=== PATIENT | male | born 1985 | race Caucasian/White ===

== ENCOUNTER 2018-11-15 08:38 | Emergency (ER) | payer OTHER ==
[~2018-11-15] VITALS: Ht 175.3 cm; Wt 102.1 kg
[~2018-11-15 08:38] MED LIST: IBUP-1027 PO; unknown antibiotic
[2018-11-15] MEDS ORDERED: IV NORMAL SALINE 1000ML BAG 1,000 ML IV SCH (08:51)
[2018-11-15] MEDS ORDERED: FAMOTIDINE 20 MG/2 ML VIAL IVP ONE (09:00)
[2018-11-15] MEDS ORDERED: ONDANSETRON PF 4 MG/2 ML VIAL. IV ONE (09:00)
[2018-11-15 09:08] LABS: BILIRUBIN,URINE MODERATE (NEG); CLARITY,URINE CLOUDY; COLOR,URINE AMBER; NITRITE,URINE NEGATIVE (NEG); PROTEIN,URINE 30 mg/dL (NEG-TRACE); UROBILINOGEN,URINE 0.2 mg/dL (0.2 mg/dL)
--- NOTE | 2018-11-15 09:09 | PHYS DOC ---
Past Medical History Past Medical History: GERD Past Surgical History: Other Additional Past Surgical Histo: INGUINAL HERNIA Alcohol Use: Occasionally Drug Use: None Adult General Chief Complaint Chief Complaint: NAUSEA/VOMITING/DIARRHA HPI HPI Patient is a 33 year old male who presents with Ate BBQ yesterday and then began vomiting. Patient states he began vomiting at noon yesterday. States Meth use 2 days ago but no other drugs. Denies abdominal pain, fever, diarrhea. States he also has a abscess on his left thumb that he is afraid is comig back. Patient states he has been off the antibiotics for this for a month. Review of Systems Review of Systems Constitutional: Denies fever or chills [] GI: Denies abdominal pain, +nausea, +vomiting, denies bloody stools or diarrhea [] : Denies dysuria or hematuria [] Musculoskeletal: Denies back pain or joint pain [] Integument: Left thumb wound. Denies rash or skin lesions [] Neurologic: Denies headache, focal weakness or sensory changes [] All other systems were reviewed and found to be within normal limits, except as documented in this note. Current Medications Current Medications Current Medications Medications (Trade) Dose Ordered Sig/Feliberto Start Time Stop Time Status Last Admin Dose Admin Famotidine (Pepcid Vial) 20 mg 1X ONCE 11/15/18 09:00 11/15/18 09:01 DC 11/15/18 09:26 20 MG Ondansetron HCl (Zofran) 4 mg 1X ONCE 11/15/18 09:00 11/15/18 09:01 DC 11/15/18 09:26 4 MG Sodium Chloride 1,000 ml @ 1,000 mls/hr 1X ONCE 11/15/18 10:30 11/15/18 11:29 DC 11/15/18 10:31 1,000 MLS/HR Allergies Allergies Allergies Coded Allergies Type Severity Reaction Last Updated Verified morphine Adverse Reaction Intermediate NAUSEA 10/09/18 Yes Physical Exam Physical Exam Constitutional: Well developed, well nourished, no acute distress, non-toxic appearance. [] Eyes: PERRLA, EOMI, conjunctiva normal, no discharge. [] Cardiovascular:Heart rate regular rhythm, no murmur [] Lungs & Thorax: Bilateral breath sounds clear to auscultation [] Abdomen: Bowel sounds normal, soft, no tenderness, no masses, no pulsatile masses. [] Skin: Left thumb wound. Warm, dry, no erythema, no rash. [] Back: No tenderness, no CVA tenderness. [] Extremities: No tenderness, no cyanosis, no clubbing, ROM intact, no edema. [] Neurologic: Alert and oriented X 3, normal motor function, normal sensory function, no focal deficits noted. [] Psychologic: Affect normal, judgement normal, mood normal. [] Current Patient Data Vital Signs Vital Signs Date Time Temp Pulse Resp B/P (MAP) Pulse Ox O2 Delivery O2 Flow Rate FiO2 11/15/18 08:58 97.4 94 16 172/117 (135) 98 Room Air 97.4 Lab Values Laboratory Tests Test 11/15/18 08:44 11/15/18 09:15 Urine Color Sherry Urine Clarity Cloudy Urine pH 5.0 Urine Specific Hensley >=1.030 Urine Protein 30 mg/dL (NEG-TRACE) Urine Glucose (UA) Negative mg/dL (NEG) Urine Ketones (Stick) Negative mg/dL (NEG) Urine Blood Negative (NEG) Urine Nitrite Negative (NEG) Urine Bilirubin Moderate (NEG) Urine Urobilinogen Dipstick 0.2 mg/dL (0.2 mg/dL) Urine Leukocyte Esterase Negative (NEG) Urine RBC 0 /HPF (0-2) Urine WBC 0 /HPF (0-4) Urine Squamous Epithelial Cells Many /LPF Urine Bacteria 0 /HPF (0-FEW) Urine Hyaline Casts Many /HPF Urine Opiates Screen Neg (NEG) Urine Methadone Screen Neg (NEG) Urine Barbiturates Neg (NEG) Urine Phencyclidine Screen Neg (NEG) Urine Amphetamine/Methamphetamine Pos (NEG) Urine Benzodiazepines Screen Neg (NEG) Urine Cocaine Screen Neg (NEG) Urine Cannabinoids Screen Neg (NEG) Urine Ethyl Alcohol Neg (NEG) White Blood Count 13.4 x10^3/uL (4.0-11.0) H Red Blood Count 6.28 x10^6/uL (4.30-5.70) H Hemoglobin 19.5 g/dL (13.0-17.5) H Hematocrit 54.6 % (39.0-53.0) H Mean Corpuscular Volume 87 fL (79-100) Mean Corpuscular Hemoglobin 31 pg (25-35) Mean Corpuscular Hemoglobin Concent 36 g/dL (31-37) Red Cell Distribution Width 13.3 % (11.5-14.5) Platelet Count 414 x10^3/uL (140-400) H Neutrophils (%) (Auto) 83 % (31-73) H Lymphocytes (%) (Auto) 10 % (24-48) L Monocytes (%) (Auto) 7 % (0-9) Eosinophils (%) (Auto) 0 % (0-3) Basophils (%) (Auto) 0 % (0-3) Neutrophils # (Auto) 11.1 x10^3/uL (1.8-7.7) H Lymphocytes # (Auto) 1.3 x10^3/uL (1.0-4.8) Monocytes # (Auto) 0.9 x10^3/uL (0.0-1.1) Eosinophils # (Auto) 0.0 x10^3/uL (0.0-0.7) Basophils # (Auto) 0.0 x10^3/uL (0.0-0.2) Sodium Level 133 mmol/L (136-145) L Potassium Level 3.4 mmol/L (3.5-5.1) L Chloride Level 93 mmol/L (98-107) L Carbon Dioxide Level 24 mmol/L (21-32) Anion Gap 16 (6-14) H Blood Urea Nitrogen 33 mg/dL (8-26) H Creatinine 1.9 mg/dL (0.7-1.3) H Estimated GFR (Cockcroft-Gault) 41.0 BUN/Creatinine Ratio 17 (6-20) Glucose Level 147 mg/dL (70-99) H Lactic Acid Level 1.5 mmol/L (0.4-2.0) Calcium Level 10.5 mg/dL (8.5-10.1) H Total Bilirubin 2.0 mg/dL (0.2-1.0) H Aspartate Amino Transferase (AST) 37 U/L (15-37) Alanine Aminotransferase (ALT) 51 U/L (16-63) Alkaline Phosphatase 93 U/L (46-116) Creatine Kinase 262 U/L (39-308) Troponin I Quantitative < 0.017 ng/mL (0.000-0.055) Total Protein 10.0 g/dL (6.4-8.2) H Albumin 4.9 g/dL (3.4-5.0) Albumin/Globulin Ratio 1.0 (1.0-1.7) Lipase 141 U/L (73-393) Ethyl Alcohol Level < 10 mg/dL (0-10) Laboratory Tests 11/15/18 09:15 Laboratory Tests 11/15/18 09:15 EKG EKG Sinus Rhythm and no STEMI[] Interpretation Time: [address] Rosas Radiology/Procedures Radiology/Procedures [] Course & Med Decision Making Course & Med Decision Making Patient is a 33 year old male who presents with Ate BBQ yesterday and then began vomiting. Patient states he began vomiting at noon yesterday. States Meth use 2 days ago but no other drugs. Denies abdominal pain, fever, diarrhea. States he also has a abscess on his left thumb that he is afraid is comig back. Patient states he has been off the antibiotics for this for a month. Abdomen soft and nontender. Patient was admitted as inpatient October 09 for acute kidney injury, gastritis and a left thumb abscess. The left thumb abscess was opened and drained and patient was placed on doxycycline. Patient is concerned that his abscess on his left thumb is coming back. The wound looks to be scabbed over and non draining. There is no swelling or tenderness seen. Patient states he has a appointment with nephrology appointment on November 29. PERRLA. Denies s oa, chest pain, headache, abdominal pain, diarrhea, constipation, back pain, dizziness, palpitations, numbness or tingling, weaknesses. Ambulatory with a steady gait. Skin pink warm and dry. Lungs are clear to auscultation in all lobes. No extremity edema. I have consulted with Dr Rosas on the care plan for this patient and he is aware of the abnormal lab values. Patient states he is needing to leave because of his grand mothers . Patient is offered admission. Patient states he needs to leave and that he is feeling much better. Patient states that he will come back if needed. Patient to continue to take Pantoprazole as his doctor ordered and to stay hydrated. I will give him a prescription for zofran. Patient is educated to not do Methamphetamines or any other drugs. Patient is stable and understands the education. Dragon Disclaimer Dragon Disclaimer This electronic medical record was generated, in whole or in part, using a voice recognition dictation system. Departure Departure Impression: Primary Impression: Nausea & vomiting Disposition: 01 HOME, SELF-CARE Condition: STABLE Referrals: NO PCP (PCP) Patient Instructions: Diet for Gastroesophageal Reflux Disease, Adult, Nausea and Vomiting Additional Instructions: Follow up with primary care physician and keep appointment with nephrology. Take medications as prescribed. Scripts Ondansetron (ONDANSETRON ODT) 4 Mg Tab.rapdis 1 TAB PO PRN Q6-8HRS, #16 TAB Prov: KRIS CAR APRN 11/15/18 Problem Qualifiers Primary Impression: Nausea & vomiting Vomiting type: unspecified Vomiting Intractability: non-intractable Qualified Codes: R11.2 - Nausea with vomiting, unspecified KRIS CAR APRN Nov 15, 2018 09:09
[2018-11-15 09:14] LABS: BARBITURATES NEG (NEG); BENZODIAZEPINES NEG (NEG); CANNABINOIDS NEG (NEG); COCAINE NEG (NEG); METHADONE NEG (NEG); OPIATES NEG (NEG); PHENCYCLIDINE NEG (NEG)
[2018-11-15 09:15] LABS: AMPHETAMINE/METHAMPHETAMINE POS (NEG)
[2018-11-15 09:24] LABS: BACTERIA,URINE 0 /HPF (0-FEW); HYALINE CASTS, URINE MANY /HPF; RBC,URINE 0 /HPF (0-2); SQUAMOUS EPITHELIAL CELL,UR MANY /LPF; WBC,URINE 0 /HPF (0-4)
[2018-11-15 09:30] LABS: BASO % 0 % (0-3); EOS % 0 % (0-3); HEMATOCRIT 54.6 % (39.0-53.0); HEMOGLOBIN 19.5 g/dL (13.0-17.5); LYMPH # 1.3 x10^3/uL (1.0-4.8); LYMPH % 10 % (24-48); MEAN CORPUSCULAR HEMOGLOBIN 31 pg (25-35); MEAN CORPUSCULAR HGB CONC 36 g/dL (31-37); MEAN CORPUSCULAR VOLUME 87 fL (79-100); MONO # 0.9 x10^3/uL (0.0-1.1); MONO % 7 % (0-9); NEUT # 11.1 x10^3/uL (1.8-7.7); NEUT % 83 % (31-73); PLATELET COUNT 414 x10^3/uL (140-400); RED BLOOD COUNT 6.28 x10^6/uL (4.30-5.70); RED CELL DISTRIBUTION WIDTH 13.3 % (11.5-14.5); WHITE BLOOD COUNT 13.4 x10^3/uL (4.0-11.0)
[2018-11-15 09:47] LABS: CALCIUM 10.5 mg/dL (8.5-10.1); CREATININE 1.9 mg/dL (0.7-1.3); POTASSIUM 3.4 mmol/L (3.5-5.1)
[2018-11-15 09:54] LABS: ALBUMIN 4.9 g/dL (3.4-5.0)
[2018-11-15] MEDS ORDERED: IV NORMAL SALINE 1000ML BAG 1,000 ML IV ONE (10:30)
--- NOTE | 2018-11-15 11:21 | EKG ---
[facility] [address] [place] [address] Test Date: 2018-11-15 Test Time: 09:02:59 Pat Name: MARIEL FREEMAN Department: Room: Gender: M [employer] Operator: : 1985 Requested By: KRIS CAR Order Number: [id number] Reading MD: Measurements Intervals [place] Rate: 91 P: 59 NC: 124 QRS: -36 QRSD: 96 T: 60 QT: 358 QTc: 441 Interpretive Statements SINUS RHYTHM ABNORMAL LEFT AXIS DEVIATION LEFT ANTERIOR FASCICULAR BLOCK ABNORMAL ECG No previous ECG available for comparison
[2018-11-15 12:00] VITALS: BP 140/81
[2018-11-15] MEDS ORDERED: ONDA4TAB12 PO (12:04)
== END 2018-11-15 12:23 | disposition home or self-care (01) ==
LOC: ER 08:38
DX: R11.2 Nausea with vomiting, unspecified (principal); K21.9 Gastro-esophageal reflux disease without esophagitis; Z98.890 Other specified postprocedural states; Z88.5 Allergy status to narcotic agent
CPT/HCPCS: 36415; 80053; 80307; 81001; 82550; 83605; 83690; 84484; 85025; 85651; 93005; 96361; 96374; 96375; 99285; G0480; J2405; J3490; J7030

== ENCOUNTER 2019-01-28 12:57 | Emergency (ER) | payer OTHER ==
[~2019-01-28] VITALS: Ht 175.3 cm; Wt 102.1 kg
[~2019-01-28 12:57] MED LIST changes: +ONDA4TAB12 PO
[2019-01-28 13:15] VITALS: BP 155/89
== END 2019-01-28 15:00 | disposition left against medical advice (07) ==
LOC: ER 12:57
DX: S60.512A Abrasion of left hand, initial encounter (principal); S60.511A Abrasion of right hand, initial encounter; Z53.21 Procedure and treatment not carried out due to patient leaving prior to being seen by health care provider; R22.32 Localized swelling, mass and lump, left upper limb; X58.XXXA Exposure to other specified factors, initial encounter; Y93.89 Activity, other specified; Y92.89 Other specified places as the place of occurrence of the external cause; Y99.8 Other external cause status

== ENCOUNTER 2019-05-15 13:41 | Emergency (ER) | payer OTHER ==
[~2019-05-15] VITALS: Ht 175.3 cm; Wt 85.9 kg
[2019-05-15 15:38] VITALS: BP 141/86
--- NOTE | 2019-05-15 15:47 | PHYS DOC ---
Past Medical History Past Medical History: GERD Past Surgical History: Other Additional Past Surgical Histo: INGUINAL HERNIA Smoking Status: Former Smoker Alcohol Use: Occasionally Drug Use: Methamphetamine Adult General Chief Complaint Chief Complaint: FOREIGN BODY/EYES HPI HPI Patient is a 34 year old male who presents to be evaluated for metal in the right eye, patient reports he got a piece of metal in his right eye sometime yesterday. He states he was seen in the ED and they did not do anything but sent him to see an stock shipper. He returns today stating he did not see the stock shipper he wanted to be seen in the ED. Denies any vision loss. He sta terrell he has had similar events before and had to be seen by an stock shipper for removal. Review of Systems Review of Systems Constitutional: Denies fever or chills [] Eyes: Reports foreign object to the right eye. Denies change in visual acuity, redness, or eye pain [] Musculoskeletal: Denies back pain or joint pain [] Integument: Denies rash or skin lesions [] Neurologic: Denies headache, focal weakness or sensory changes [] All other systems were reviewed and found to be within normal limits, except as documented in this note. Allergies Allergies Allergies Coded Allergies Type Severity Reaction Last Updated Verified morphine Adverse Reaction Intermediate NAUSEA 10/09/18 Yes Physical Exam Physical Exam Constitutional: Well developed, well nourished, no acute distress, non-toxic appearance. [] Eyes: PERRLA, EOMI, right conjunctiva is mildly injected, there is an obvious rust ring at approximately 1500 position. Skin: Warm, dry, no erythema, no rash. [] Back: No tenderness, no CVA tenderness. [] Extremities: No tenderness, no cyanosis, no clubbing, ROM intact, no edema. [] Neurologic: Alert and oriented X 3, normal motor function, normal sensory function, no focal deficits noted. [] Psychologic: Affect normal, judgement normal, mood normal. [] Current Patient Data Vital Signs Vital Signs Date Time Temp Pulse Resp B/P (MAP) Pulse Ox O2 Delivery O2 Flow Rate FiO2 05/15/19 15:38 97.8 104 16 141/86 (104) 98 Room Air 97.8 EKG EKG [] Radiology/Procedures Radiology/Procedures [] Course & Med Decision Making Course & Med Decision Making Pertinent Labs and Imaging studies reviewed. (See chart for details) This is a 34-year-old male patient who presents the ED today to be evaluated for a piece of metal in the right eye that occurred yesterday. Noted for rust ring at around 1500 position. Considering this piece of metal has been in his eye for over 24 hours, recommended following up with an stock shipper. He states has been through this "rodeo" multiple times before and know what to do including seeing the eye doctor in the medical building. He left without his paperwork. Keily Disclaimer Dragmauro Disclaimer This electronic medical record was generated, in whole or in part, using a voice recognition dictation system. Departure Departure Impression: Primary Impression: Corneal rust ring of right eye Disposition: HOME, SELF-CARE Condition: STABLE Referrals: NO PCP (PCP) ELOISE DUPONT APRN May 15, 2019 15:47
== END 2019-05-15 15:53 | disposition home or self-care (01) ==
LOC: ER 13:41
DX: T15.01XA Foreign body in cornea, right eye, initial encounter (principal); K21.9 Gastro-esophageal reflux disease without esophagitis; Z87.891 Personal history of nicotine dependence; Z88.5 Allergy status to narcotic agent; X58.XXXA Exposure to other specified factors, initial encounter; Y93.89 Activity, other specified; Y92.89 Other specified places as the place of occurrence of the external cause; Y99.8 Other external cause status
CPT/HCPCS: 99281